=== PATIENT | female | born 1965 | race Caucasian/White ===

== ENCOUNTER 2016-05-22 15:19 | Emergency (ER) | payer OTHER ==
[~2016-05-22 15:19] MED LIST: CYCLOBENZAPRINE5 M1 PO; KLONOPIN1 M1 PO; RISPERDAL0.5 M2 PO; SYNTHROID50 MC1 PO; ULTRAM50 M1 PO; lunesta
[2016-05-22] MEDS ORDERED: MEDROL4 M1 PO (15:35)
== END 2016-05-22 17:22 ==
LOC: EDMED 15:19
DX: T78.40XA Allergy, unspecified, initial encounter (principal); Z98.890 Other specified postprocedural states

== ENCOUNTER 2016-05-27 22:07 | Emergency (ER) | payer OTHER ==
[~2016-05-27 22:07] MED LIST changes: +MEDROL4 M1 PO
[2016-05-27] MEDS ORDERED: RISPERDAL1 M2 PO (22:34)
[2016-05-27 22:50] LABS: BASO % 0.3 % (0-2); EOS % 5.7 % (0-7); EOSINOPHIL ABSOLUTE COUNT 0.8 tho/cmm (0.0-0.7); HCT-HEMATOCRIT 39.5 % (34.0-49.0); HGB-HEMOGLOBIN 13.7 gm/dl (12.0-15.5); IMMATURE GRANULOCYTES ABSOLUTE 0.06 tho/cmm (0-0.03); IMMATURE GRANULOCYTES PERCENT 0.4 % (0-0.3); LYMPH % 26.6 % (20-45); LYMPH ABSOLUTE COUNT 3.9 tho/cmm (0.8-4.5); MCH (MEAN CORPUSCULAR HGB) 30.6 pg (28.0-32.0); MCHC MEAN CORPUSCULAR HGB CONC 34.7 % (32.0-36.0); MCV (MEAN CELL VOLUME) 88.2 fl (82.0-96.0); MEAN PLATELET VOLUME 10.2 cmc (9.4-12.4); MONO % 6.6 % (0-12); NEUTROPHIL ABSOLUTE COUNT 8.9 tho/cmm (1.6-8.0); NEUTROPHIL-AUTOMATED 8.9 tho/cmm (1.6-8.0); NEUTROPHILS % 60.4 % (40-80); PLATELET COUNT 294 tho/cmm (150-450); RED BLOOD COUNT 4.48 mil/cmm (4.00-5.20); RED CELL DISTRIBUTION WIDTH 12.7 % (12.4-16.4); WHITE BLOOD COUNT 14.7 tho/cmm (4.0-10.0)
[2016-05-27 23:07] LABS: URINE BILIRUBIN NEGATIVE (NEG); URINE BLOOD NEGATIVE (NEG); URINE GLUCOSE (UA) NEGATIVE (NEG); URINE KETONE NEGATIVE (NEG); URINE LEUKOCYTE ESTERASE NEGATIVE (NEG); URINE NITRITE NEGATIVE (NEG); URINE PROTEIN NEGATIVE (NEG)
[2016-05-27 23:10] LABS: ANION GAP 13 mmol/L (0-20); BLOOD UREA NITROGEN 9 mg/dl (6-24); CALCIUM 8.6 mg/dl (8.5-10.5); CARBON DIOXIDE-VENOUS 24 mmol/L (22-32); CHLORIDE 104 mmol/l (96-110); CREATININE 0.99 mg/dl (0.50-1.10); GLUCOSE 160 mg/dL (70-110); SODIUM 137 mmol/L (135-145); eGFR VALUE FOR BLACK 76 mL/Min
[2016-05-27 23:11] LABS: POTASSIUM 3.6 mmol/L (3.7-5.1)
[2016-05-27 23:21] LABS: URINE APPEARANCE CLEAR; URINE COLOR PALE YELLOW
[2016-05-28] MEDS ORDERED: EPIPEN 2-P0.3 MG/0.3 IM (00:21)
== END 2016-05-28 00:33 ==
LOC: EDMED 22:07
PROVIDERS: Emergency Medicine
DX: T78.40XA Allergy, unspecified, initial encounter (principal); R00.0 Tachycardia, unspecified; Z87.891 Personal history of nicotine dependence
CPT/HCPCS: J7030; Q9967